=== PATIENT | male | born 1990 | race Caucasian/White ===

== ENCOUNTER 2024-11-15 14:53 | Emergency (ER) | payer OTHER ==
[~2024-11-15] VITALS: Ht 188 cm; Wt 97.1 kg
[2024-11-15] MEDS: LIDOCAINE 2% MDV 20ML VIAL SC ONE (16:15)
[2024-11-15 17:07] VITALS: BP 128/80; TEMP 97.8; O2SAT 96
== END 2024-11-15 17:10 | disposition home or self-care (01) ==
LOC: M ED 14:53
DX: S61.511A Laceration without foreign body of right wrist, initial encounter (principal); Y92.019 Unspecified place in single-family (private) house as the place of occurrence of the external cause; Y93.9 Activity, unspecified; Y99.9 Unspecified external cause status